=== PATIENT | female | born 1970 | race Caucasian/White ===

== ENCOUNTER 2017-05-07 12:49 | Emergency (ER) | payer MEDICARE, BC, OTHER | END 2017-05-07 17:26 | disposition left against medical advice (07) | LOC: E/R 12:49 → FTE 17:26 | DX: Z53.21 Procedure and treatment not carried out due to patient leaving prior to being seen by health care provider (principal) ==

== ENCOUNTER 2017-07-26 15:45 | Emergency (ER) | payer MEDICARE, BC ==
[2017-07-26] MEDS: DEXAMETHASONE 10 MG/ML 1 ML INJ PO (16:11)
[2017-07-26] MEDS: NAPROXEN 500 MG TAB PO (16:23)
[2017-07-26] MEDS: ALBUTEROL 0.083% (NEB) 2.5 MG/3 ML AMP HHN (16:25)
[2017-07-26] MEDS: IPRATROPIUM (NEB) 0.5 MG/2.5 ML AMP HHN (16:25)
== END 2017-07-26 17:02 | disposition home or self-care (01) ==
LOC: FTE 15:45
DX: J20.9 Acute bronchitis, unspecified (principal); F17.210 Nicotine dependence, cigarettes, uncomplicated
CPT/HCPCS: 71045; 94664; 99284-25

== ENCOUNTER 2017-07-30 19:43 | Emergency (ER) | payer MEDICARE, BC ==
[2017-07-30] MEDS: HYDROCODONE/APAP (5/325) TAB PO (23:21)
== END 2017-07-30 23:35 | disposition home or self-care (01) ==
LOC: FTE 19:43
DX: M79.672 Pain in left foot (principal); M79.671 Pain in right foot; Z87.891 Personal history of nicotine dependence
CPT/HCPCS: 73630; 73630-LT; 99283-25

== ENCOUNTER 2017-10-06 03:01 | Emergency (ER) | payer MEDICARE, BC ==
[2017-10-06] MEDS: ALBUTEROL 0.083% (NEB) 2.5 MG/3 ML AMP HHN (06:32)
[2017-10-06] MEDS: IPRATROPIUM (NEB) 0.5 MG/2.5 ML AMP HHN (06:33)
[2017-10-06] MEDS: DEXAMETHASONE 10 MG/ML 1 ML INJ IM (06:38)
[2017-10-06] MEDS: LORAZEPAM 1 MG TAB PO (06:38)
== END 2017-10-06 07:26 | disposition home or self-care (01) ==
LOC: FTE 03:01
DX: R05 Cough (principal); F17.210 Nicotine dependence, cigarettes, uncomplicated
CPT/HCPCS: 71045; 94664; 96372; 99284-25

== ENCOUNTER 2018-04-05 19:13 | Emergency (ER) | payer MEDICARE, BC ==
[2018-04-05 19:47] LABS: ADD MAN DIFF? NO
[2018-04-05 19:50] LABS: WHITE BLOOD COUNT 12.7 10^3/ul (4.8-10.8)
[2018-04-05 19:50] LABS: BASOPHIL # 0.1 10^3/ul (0.0-0.1); BASOPHILS % 0.6 % (0.0-2.0); EOSINOPHILS # 0.1 10^3/ul (0.0-0.5); EOSINOPHILS % 0.9 % (0.0-7.0); HEMATOCRIT 41.8 % (37.0-47.0); HEMOGLOBIN 14.5 g/dl (12.0-16.0); LYMPHOCYTES # 2.6 10^3/ul (0.8-2.9); LYMPHOCYTES % 20.3 % (15.0-51.0); MEAN CORPUSCULAR HEMOGLOBIN 30.9 pg (29.0-33.0); MEAN CORPUSCULAR HGB CONC 34.7 g/dl (32.0-37.0); MEAN CORPUSCULAR VOLUME 89.1 fl (82.0-101.0); MEAN PLATELET VOLUME 9.5 fl (7.4-10.4); MONOCYTE # 0.9 10^3/ul (0.3-0.9); MONOCYTES % 7.4 % (0.0-11.0); NEUTROPHIL # 8.8 10^3/ul (1.6-7.5); NEUTROPHILS % 69.5 % (39.0-77.0); PLATELET COUNT 293 10^3/UL (140-415); RED BLOOD COUNT 4.69 10^6/ul (4.20-5.40); RED CELL DISTRIBUTION WIDTH 13.1 % (11.5-14.5)
[2018-04-05] MEDS: ONDANSETRON 4 MG INJ IV (19:59)
[2018-04-05] MEDS: HYDROmorphONE 1 MG/ML SYG IV (19:59)
[2018-04-05 20:16] LABS: ALANINE AMINOTRANSFERASE 33 IU/L (13-69); ALBUMIN 4.2 g/dl (3.3-4.9); ALBUMIN/GLOBULIN RATIO 1.68; ALKALINE PHOSPHATASE 79 IU/L (42-121); ANION GAP 12 (5-13); ASPARTATE AMINO TRANSFERASE 20 IU/L (15-46); BLOOD UREA NITROGEN 9 mg/dl (7-20); CALCIUM 8.9 mg/dl (8.4-10.2); CARBON DIOXIDE 27 mmol/L (21-31); CHLORIDE 103 mmol/L (97-110); CREATININE 0.66 mg/dl (0.44-1.00); Estimated GFR > 60 mL/min (>60); GLUCOSE 166 mg/dl (70-220); LIPASE 69 U/L (23-300); POTASSIUM 3.9 mmol/L (3.5-5.1); SODIUM 142 mmol/L (135-144); TOTAL PROTEIN 6.7 g/dl (6.1-8.1)
== END 2018-04-05 22:15 | disposition home or self-care (01) ==
LOC: E/R 19:13
DX: K59.00 Constipation, unspecified (principal); F17.210 Nicotine dependence, cigarettes, uncomplicated
CPT/HCPCS: 36415; 74176; 80053; 81025; 83690; 85025; 96374; 96375; 99285-25

== ENCOUNTER 2018-05-06 12:38 | Emergency (ER) | payer MEDICARE, BC ==
[2018-05-06] MEDS: LIDOCAINE/MYLANTA 40 ML BTL PO (16:03)
[2018-05-06] MEDS: DICYCLOMINE 10 MG CAP PO (16:03)
[2018-05-06] MEDS: BELLADONNA/PHENOBARBITAL TAB PO (16:03)
[2018-05-06] MEDS: FAMOTIDINE 20 MG INJ IV (16:10)
[2018-05-06 16:22] LABS: ADD MAN DIFF? NO
[2018-05-06 16:27] LABS: WHITE BLOOD COUNT 9.7 10^3/ul (4.8-10.8)
[2018-05-06 16:27] LABS: BASOPHILS % 0.4 % (0.0-2.0); EOSINOPHILS # 0.3 10^3/ul (0.0-0.5); EOSINOPHILS % 2.9 % (0.0-7.0); HEMATOCRIT 40.5 % (37.0-47.0); HEMOGLOBIN 13.8 g/dl (12.0-16.0); LYMPHOCYTES # 2.2 10^3/ul (0.8-2.9); LYMPHOCYTES % 22.9 % (15.0-51.0); MEAN CORPUSCULAR HEMOGLOBIN 30.7 pg (29.0-33.0); MEAN CORPUSCULAR HGB CONC 34.1 g/dl (32.0-37.0); MEAN PLATELET VOLUME 9.6 fl (7.4-10.4); MONOCYTE # 0.8 10^3/ul (0.3-0.9); MONOCYTES % 8.3 % (0.0-11.0); NEUTROPHIL # 6.3 10^3/ul (1.6-7.5); NEUTROPHILS % 65.1 % (39.0-77.0); PLATELET COUNT 291 10^3/UL (140-415); RED CELL DISTRIBUTION WIDTH 12.9 % (11.5-14.5)
[2018-05-06 16:46] LABS: ALANINE AMINOTRANSFERASE 23 IU/L (13-69); ALBUMIN 4.1 g/dl (3.3-4.9); ALBUMIN/GLOBULIN RATIO 1.36; ALKALINE PHOSPHATASE 79 IU/L (42-121); ANION GAP 11 (5-13); ASPARTATE AMINO TRANSFERASE 21 IU/L (15-46); BLOOD UREA NITROGEN 6 mg/dl (7-20); CALCIUM 9.2 mg/dl (8.4-10.2); CARBON DIOXIDE 25 mmol/L (21-31); CHLORIDE 105 mmol/L (97-110); CREATININE 0.59 mg/dl (0.44-1.00); Estimated GFR > 60 mL/min (>60); GLUCOSE 84 mg/dl (70-220); LIPASE 60 U/L (23-300); POTASSIUM 3.7 mmol/L (3.5-5.1); SODIUM 141 mmol/L (135-144); TOTAL PROTEIN 7.1 g/dl (6.1-8.1)
== END 2018-05-06 18:26 | disposition home or self-care (01) ==
LOC: E/R 18:26
DX: R10.84 Generalized abdominal pain (principal); F17.210 Nicotine dependence, cigarettes, uncomplicated
CPT/HCPCS: 36415; 80053; 81025; 83690; 85025; 96374; 99284-25

== ENCOUNTER 2018-10-08 07:48 | Emergency (ER) | payer MEDICARE, BC ==
[2018-10-08] MEDS: DEXAMETHASONE 10 MG/ML 1 ML INJ IM (09:03)
[2018-10-08] MEDS: IPRATROPIUM (NEB) 0.5 MG/2.5 ML AMP HHN (09:10)
[2018-10-08] MEDS: ALBUTEROL 0.083% (NEB) 2.5 MG/3 ML AMP HHN (09:10)
== END 2018-10-08 10:19 | disposition home or self-care (01) ==
LOC: FTE 07:48
DX: F41.9 Anxiety disorder, unspecified (principal)
CPT/HCPCS: 71045; 94664; 96372; 99284-25

== ENCOUNTER 2018-11-10 00:07 | Emergency (ER) | payer MEDICARE, BC | END 2018-11-10 01:54 | disposition home or self-care (01) | LOC: FTE 00:07 | DX: R07.9 Chest pain, unspecified (principal); F41.9 Anxiety disorder, unspecified; F17.210 Nicotine dependence, cigarettes, uncomplicated; I10 Essential (primary) hypertension | CPT/HCPCS: 71045; 93005; 99284-25 ==